=== PATIENT | female | born 1960 | race Caucasian/White ===

== ENCOUNTER 2016-11-10 11:46 | Outpatient (CLI) | payer OTHER | END 2016-11-10 11:47 | disposition home or self-care (01) | DX: M16.0 Bilateral primary osteoarthritis of hip (principal); M25.552 Pain in left hip ==

== ENCOUNTER 2017-03-20 09:49 | Outpatient (CLI) | payer OTHER | END 2017-03-20 09:50 | disposition home or self-care (01) | DX: Z12.31 Encounter for screening mammogram for malignant neoplasm of breast (principal) ==

== ENCOUNTER 2018-03-25 15:43 | Outpatient (CLI) | payer OTHER ==
--- NOTE | 2018-03-26 13:27 | Mammography Report ---
DIGITAL SCREENING MAMMOGRAM: 03/25/2018 CLINICAL INDICATION: A 58-year-old for screening. COMPARISON: 03/2017, 03/2016, 03/2015, 02/2014, 02/2013, 05/2011. TECHNIQUE: Routine CC and MLO projections were obtained of the breasts. FINDINGS: Scattered fibroglandular tissue is present within the breasts. There are no dominant masses, suspicious microcalcifications, or secondary signs of malignancy. In comparison to the previous studies, there are no significant changes. IMPRESSION: NO MAMMOGRAPHIC EVIDENCE OF MALIGNANCY. NO SIGNIFICANT INTERVAL CHANGES. RECOMMENDATION: Screening mammography is recommended annually. BIRADS CATEGORY 1 - NEGATIVE. STANDARD QUALIFYING STATEMENTS: 1. This examination was reviewed with the aid of Computed-Aided Detection (CAD). 2. A negative or benign imaging report should not delay biopsy if clinically suspicious findings are present. Consider surgical consultation if warranted. More than 5% of cancers are not identified by imaging. 3. Dense breasts may obscure an underlying neoplasm. TD: 03/26/2018 13:17
== END 2018-03-25 15:44 | disposition home or self-care (01) ==
LOC: DI 15:43
PROVIDERS: ATTEND Physician Assistant
DX: Z12.31 Encounter for screening mammogram for malignant neoplasm of breast (principal)
CPT/HCPCS: 77067

== ENCOUNTER 2019-06-05 13:10 | Outpatient (CLI) | payer OTHER ==
--- NOTE | 2019-06-06 11:18 | Mammography Report ---
Reason: SCREENING MAMMO Procedure Date: 06/05/2019 Accession Number: [id number] / [id number] Procedure: [facility] - Screening Mammo w/[place] CPT Code: FULL RESULT: EXAM: Screening Mammo w/[place] DATE: 06/05/2019 2:11 PM CLINICAL HISTORY: Screening encounter. History of early menses. TECHNIQUE: (B) - Bilateral CC and MLO views were obtained. Right laterally exaggerated CC views obtained. COMPARISON: 03/25/2018 through 03/15/2015. PARENCHYMAL PATTERN: (A) - The breast(s) demonstrate(s) scattered fibroglandular densities. FINDINGS: A nodule in the right breast upper outer quadrant, 11:00 position 5 cm from the nipple demonstrates long-term stability and well-circumscribed borders potentially with a lucent hilum, typically benign. There are no suspicious masses, calcifications, or areas of distortion. IMPRESSION: Benign findings. BI-RADS category 2. RECOMMENDATION: (ANNUAL) - Recommend routine annual screening mammography. BI-RADS CATEGORY: (2) - Benign Findings. STANDARD QUALIFYING STATEMENTS: 1. This examination was not reviewed with the aid of Computer-Aided Detection (CAD). 2. A negative or benign imaging report should not preclude biopsy if clinically suspicious findings are present. 3. Dense breasts may obscure an underlying neoplasm. 4. This examination was reviewed with the aid of 3D breast imaging (tomosynthesis).
== END 2019-06-05 13:11 | disposition home or self-care (01) ==
LOC: DI 13:10
DX: Z12.31 Encounter for screening mammogram for malignant neoplasm of breast (principal)
CPT/HCPCS: 77063; 77067

== ENCOUNTER 2020-03-31 13:22 | Outpatient (CLI) | payer OTHER ==
--- NOTE | 2020-04-01 13:57 | XRAY Report ---
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
== END 2020-03-31 13:23 | disposition home or self-care (01) ==
LOC: DI 13:22
PROVIDERS: ATTEND Registered Nurse
DX: M17.12 Unilateral primary osteoarthritis, left knee (principal)

== ENCOUNTER 2020-04-30 16:13 | Outpatient (CLI) | payer OTHER ==
--- NOTE | 2020-04-30 18:14 | Ultrasound Report ---
PROCEDURE: Pelvic w/Transvaginal INDICATIONS: POSTMENAPAUSAL BLEEDING TECHNIQUE: Real-time scanning was performed of the pelvic organs, with image documentation. Additional endovagi nal scanning was necessary due to incomplete visualization of the adnexal and endometrial structures by transabdominal scanning. COMPARISON: None. FINDINGS: Transabdominal scanning: Limited scanning through the kidneys shows no hydronephrosis. No pathologi c free abdominal or pelvic fluid. Endovaginal scanning: Uterus: Uterus is normal in size at 8.6 x 4.1 x 5.0 cm. Uterine echotexture is heterogeneous withou t focal mass lesion or fibroid. The endometrium measures 14 mm in combined thickness. There is hetero geneous fluid within the endometrial cavity. Incidental note of a 4 mm endometrial cyst. Incidental n ote of nabothian cyst in the cervix. Ovaries: Right ovary measures 1.1 x 1.8 x 1.7 cm. Left ovary measures 1.6 x 1.0 x 1.6 cm. No ovarian or adnexal mass lesions. IMPRESSION: 1. Heterogeneous uterine echotexture without focal uterine mass or fibroid. 2. Thickened endometrium without focal mass lesions. In this postmenopausal patient, recommend furthe r evaluation with endometrial biopsy. 3. Normal appearance of the bilateral ovaries. Reviewed by: Bhavin Camacho MD on 04/30/2020 6:12 PM PDT Approved by: Bhavin Camacho MD on 04/30/2020 6:12 PM PDT Station ID: [id number]
== END 2020-04-30 16:14 | disposition home or self-care (01) ==
LOC: DI 16:13
PROVIDERS: ATTEND Nurse Practitioner Family
DX: N95.0 Postmenopausal bleeding (principal); R93.89 Abnormal findings on diagnostic imaging of other specified body structures
CPT/HCPCS: 76830; 76856

== ENCOUNTER 2021-02-02 15:15 | Outpatient (CLI) | payer OTHER ==
--- NOTE | 2021-02-03 08:25 | Mammography Report ---
BILATERAL DIGITAL SCREENING MAMMOGRAM 3D/2D: 02/02/2021 CLINICAL: Routine screening. Comparison is made to exams dated: 06/05/2019 mammogram, 03/25/2018 mammogram, 03/20/2017 mammogram, 03/05 mammogram, 03/15/2015 mammogram, and 02/19/2014 mammogram - [facility]. There are scattered fibroglandular elements in both breasts. There is a stable benign focal asymmetry in both breasts. No significant masses, calcifications, or other findings are seen in either breast. There has been no significant interval change. IMPRESSION: BENIGN There is no mammographic evidence of malignancy. A 1 year screening mammogram is recommended. This exam was interpreted at Station ID: [id number]. NOTE: For mammograms, a report in lay terms will be sent to the patient. Approximately 15% of breast malignancies will not be visualized mammographically. In the management of a palpable breast mass, a negative mammogram must not discourage biopsy of a clinically suspicious lesion. Electronically Signed By: Blanco Terry acr/penrad:02/02/2021 16:12:01 ACR BI-RADS Category 2: Benign Finding(s) 3342F PARENCHYMAL PATTERN: (A) - The breast(s) demonstrate(s) scattered fibroglandular densities. BI-RADS CATEGORY: (2) - 2 RECOMMENDATION: (ANNUAL) - Recommend routine annual screening mammography. [id number] 1 year screening LATERALITY: (B)
== END 2021-02-02 15:16 | disposition home or self-care (01) ==
LOC: DI 15:15
PROVIDERS: ATTEND Physician Assistant
DX: Z12.31 Encounter for screening mammogram for malignant neoplasm of breast (principal)

== ENCOUNTER 2022-01-25 13:19 | Outpatient (CLI) | payer OTHER ==
--- NOTE | 2022-01-25 14:14 | XRAY Report ---
PROCEDURE: Lumbar Spine 2 View INDICATIONS: RIGHT SIDE LOW BACK PAIN TECHNIQUE: 2 views of the lumbar spine were acquired. COMPARISON: None. FINDINGS: Bones: 5 vad-[id number]-hlmtgyn vertebrae are present. There is grade 1 anterolisthesis of L5 on S1. Degen erative endplate changes and bilateral facet arthrosis throughout lumbar spine is seen more prominent at L4-5 and L5-S1 levels. No vertebral body compression fractures. No suspicious bony lesions. Soft tissues: Overlying bowel gas pattern is normal. No suspicious soft tissue calcifications. IMPRESSION: Degenerative disc disease throughout lumbar spine more prominent at L4-5 and L5-S1 level s. Grade 1 anterolisthesis of L5 on S1. No acute compression fracture. No gross paraspinous soft tiss ue abnormality. Reviewed by: Tyrel Mcadams MD on 01/25/2022 2:12 PM PDT Approved by: Tyrel Mcadams MD on 01/25/2022 2:12 PM PDT Station ID: [id number]
== END 2022-01-25 13:20 | disposition home or self-care (01) ==
LOC: DI 13:19
PROVIDERS: ATTEND Physician Assistant
DX: M51.36 Other intervertebral disc degeneration, lumbar region (principal); M51.37 Other intervertebral disc degeneration, lumbosacral region; M43.17 Spondylolisthesis, lumbosacral region

== ENCOUNTER 2022-03-20 11:37 | Outpatient (CLI) | payer OTHER ==
--- NOTE | 2022-03-20 15:29 | Mammography Report ---
BILATERAL DIGITAL SCREENING MAMMOGRAM 3D/2D: 03/20/2022 Comparison is made to exams dated: 02/02/2021 mammogram, 06/05/2019 mammogram, 03/25/2018 mammogram, 03/05 mammogram, 03/17/2016 mammogram, and 03/15/2015 mammogram - [facility]. There are scattered fibroglandular elements in both breasts. There is a stable benign focal asymmetry in both breasts. No significant masses, calcifications, or other findings are seen in either breast. There has been no significant interval change. IMPRESSION: BENIGN There is no mammographic evidence of malignancy. A 1 year screening mammogram is recommended. This exam was interpreted at Station ID: [id number]. NOTE: For mammograms, a report in lay terms will be sent to the patient. Approximately 15% of breast malignancies will not be visualized mammographically. In the management of a palpable breast mass, a negative mammogram must not discourage biopsy of a clinically suspicious lesion. Electronically Signed By: Blanco Terry acr/penrad:03/20/2022 12:48:57 ACR BI-RADS Category 2: Benign Finding(s) 3342F PARENCHYMAL PATTERN: (A) - The breast(s) demonstrate(s) scattered fibroglandular densities. BI-RADS CATEGORY: (2) - 2 RECOMMENDATION: (ANNUAL) - Recommend routine annual screening mammography. [id number] 1 year screening LATERALITY: (B)
== END 2022-03-20 11:38 | disposition home or self-care (01) ==
LOC: DI.N 11:37
PROVIDERS: ATTEND Physician Assistant
DX: Z12.31 Encounter for screening mammogram for malignant neoplasm of breast (principal)

== ENCOUNTER 2022-05-30 07:23 | Day surgery (SDC) | payer OTHER ==
[2022-05-30] MEDS ORDERED: LACTATED RINGERS 1,000 ML IV ONE ×2 (07:33→09:50)
[2022-05-30] MEDS ORDERED: PROPOFOL 500 MG/50 ML 500 MG/50 ML VIAL ONE (07:52)
[2022-05-30] MEDS ORDERED: LIDOCAINE-MPF 2% 5 ML VIAL ONE (07:52)
--- NOTE | 2022-05-30 08:58 | ANESTHESIA ---
Pre-Anesthesia VS, & Labs - Diagnosis screening - Procedure colonoscopy Vital Signs: Temp Pulse Resp BP Pulse Ox 36.9 C 69 16 154/83 H 98 05/30/22 07:38 05/30/22 07:38 05/30/22 07:38 05/30/22 07:38 05/30/22 07:38 Height: 5 ft 4 in Weight (kg): 98 kg Body Mass Index: 37.0 BMI Classification: Obese - NPO >8 hours, Other - Is Patient ?: No Home Medications and Allergies Home Medications: Ambulatory Orders Losartan [Cozaar] 50 mg PO DAILY 05/30/22 hydroCHLOROthiazide [Hydrodiuril] 12.5 mg PO DAILY 05/30/22 Losartan [Cozaar] 50 mg PO DAILY 05/30/22 hydroCHLOROthiazide [Hydrodiuril] 12.5 mg PO DAILY 05/30/22 Allergies/Adverse Reactions: Allergies Allergy/AdvReac Type Severity Reaction Status Date / Time Penicillins Allergy Hives Verified 02/23/15 23:39 Anes History & Medical History - Anesthetic History Anesthesia Complications: reports: No previous complications - Medical History Cardiovascular: reports: High cholesterol Pulmonary: reports: None Gastrointestinal: reports: None Urinary: reports: Incontinence Musculoskeletal: reports: Osteoarthritis Endocrine/Autoimmune: reports: None, HyPOthyroidism Blood Disorders: reports: None Skin: reports: None Smoking Status: Never smoker Psychosocial: reports: Alcohol (one drink a week) History of Cancer?: No - Surgical History General: reports: Appendectomy Eyes Ears Nose Throat (EENT): reports: Tonsil/Adenoidectomy Gynecologic: reports: section, Dilation and currettage, Other (hysteroscopy) Orthopedic: reports: Arthroscopic surgery, Other Exam General: Alert, Oriented x3 Dental: WNL Mouth Opening: Greater than 4 Fingerbreadths Neck Mobility: Normal Mallampati classification: II Thyromental Distance: greater than 6 cm Respiratory: Lungs clear Cardiovascular: Regular rate, Normal S1, Normal S2 Plan Anesthesia Type: Total IV Consent for Procedure(s) Verified and Reviewed: Yes Code Status: Attempt Resuscitation ASA classification: 2-Mild systemic disease Is this case an emergency?: No
[2022-05-30] MEDS ORDERED: MIDAZOLAM 2 MG/2 ML VIAL ONE (09:17)
[2022-05-30 10:37] VITALS: BP 132/90
--- NOTE | 2022-05-30 10:56 | ANESTHESIA POST OP EVALUATION ---
Anesthesia Post Eval - Post Anesthesia Eval Vitals: Last Vital Signs Temp 36.4 C L 05/30/22 10:15 Pulse 76 05/30/22 10:15 Resp 16 05/30/22 10:15 BP 132/90 H 05/30/22 10:15 Pulse Ox 100 05/30/22 10:15 CV Function Including HR & BP: Stable Pain Control: Satisfactory Nausea & Vomiting: Negative Mental Status: Baseline Respiratory Status: Airway Patent Hydration Status: Satisfactory Anesthesia Complications: None
== END 2022-05-30 07:24 | disposition home or self-care (01) ==
LOC: SDS 07:23
PROVIDERS: ATTEND Surgery
PROC: 0DBL8ZZ Excision of Transverse Colon, Via Natural or Artificial Opening Endoscopic (ICD-10-PCS; 2022-05-30)
PROC: 0DBH8ZZ Excision of Cecum, Via Natural or Artificial Opening Endoscopic (ICD-10-PCS; principal; 2022-05-30 09:30)
DX: Z12.11 Encounter for screening for malignant neoplasm of colon (principal); D12.3 Benign neoplasm of transverse colon; D12.0 Benign neoplasm of cecum; K57.30 Diverticulosis of large intestine without perforation or abscess without bleeding; G47.30 Sleep apnea, unspecified; E66.9 Obesity, unspecified; Z68.37 Body mass index [BMI] 37.0-37.9, adult
CPT/HCPCS: 45380; J7120